=== PATIENT | female | born 1955 | race Caucasian/White ===

== ENCOUNTER 2021-04-20 13:21 | Outpatient (CLI) | payer OTHER ==
--- NOTE | 2021-04-20 16:17 | Ultrasound Report ---
PROCEDURE: Pelvic w/Transvaginal INDICATIONS: POST MENOPAUSAL BLEEDING TECHNIQUE: Real-time scanning was performed of the pelvic organs, with image documentation. Additional endovagi nal scanning was necessary due to incomplete visualization of the adnexal and endometrial structures by transabdominal scanning. COMPARISON: None. FINDINGS: No pathologic free abdominal or pelvic fluid. Uterus: Anteverted uterus is mildly enlarged and measures 8 x 3.6 x 4.9 cm in size. Coarsely heteroge neous myometrial echotexture is seen. 1.3 x 1 x 1.2 cm intramural fibroid in anterior myometrium near midline is again seen previously measures 1.4 x 1.3 x 1.7 cm in size. The endometrium measures 1.0 m m in combined thickness. Heterogeneous myometrial echotexture is noted with ill-defined margin. Endom etrial cyst measures 8 x 5 x 5 mm in size is also noted. No definite solid appearing endometrial mass . Multiple small nabothian cysts are noted along the endocervical canal. Ovaries: Right ovary measures 1.9 x 0.7 x 1.2 cm in size with a volume of 0.79 cc. Left ovary measur es 2 x 0.9 x 1.1 cm in size with a volume of 1.04 cc. No solid-appearing ovarian lesion. Normal blood flow is seen in bilateral ovaries on color Doppler images. IMPRESSION: 1. Enlarged uterus with heterogeneous myometrial echotexture. Double slight decrease in size of patie nt's known uterine fibroid as above. 2. Thickened endometrium for patient's age with heterogeneous endometrial echotexture and ill-defined margin. Subcentimeter endometrial cyst as above. Finding may represent endometrial hyperplasia. Unde rlying endometrial mass cannot be entirely excluded. CABINET FINISHER correlation is recommended. 3. No gross abnormality is seen in bilateral ovaries. Reviewed by: Petros Mayo MD on 04/20/2021 4:15 PM PST Approved by: Petros Mayo MD on 04/20/2021 4:15 PM PST Station ID: [id number]
== END 2021-04-20 13:22 | disposition home or self-care (01) ==
LOC: DI 13:21
PROVIDERS: ATTEND Nurse Practitioner Family
DX: N95.0 Postmenopausal bleeding (principal); D25.1 Intramural leiomyoma of uterus; R93.89 Abnormal findings on diagnostic imaging of other specified body structures; N85.8 Other specified noninflammatory disorders of uterus

== ENCOUNTER 2021-04-20 13:22 | Outpatient (CLI) | payer OTHER ==
--- NOTE | 2021-04-20 16:14 | DEXA Report ---
PROCEDURE: Dexa Spine and/or Hip INDICATIONS: POST MENOPAUSAL TECHNIQUE: Dual energy x-ray absorptiometry (DXA) was performed on a Yippy System. Regions measur ed are the AP Spine, femoral neck, and if needed forearm. COMPARISON: None. FINDINGS: Lumbar Spine: Bone Mineral Density 1.324 g/cm/cm,T score 1.3. Left Hip: Bone Mineral Density 0.947 g/cm/cm,T score -0.5 Left Femoral Neck: Bone Mineral Density 0.898 g/cm/cm, T score -1.0. (T score greater or equal to -1.0: NORMAL) (T score from -1.1 to -2.4: OSTEOPENIA) (T score less than or equal to -2.5 to: OSTEOPOROSIS) Impression: Normal bone mineral density. Patients with diagnosis of osteoporosis or osteopenia should have regular bone mineral density assess ment. For those eligible for Medicare, routine testing is allowed once every 2 years. Testing frequ ency can be increased for patients who have rapidly progressing disease or for those who are receivin g medical therapy to restore bone mass. Reviewed by: Petros aMyo MD on 04/20/2021 4:12 PM PST Approved by: Petros Mayo MD on 04/20/2021 4:12 PM PST Station ID: [id number]
== END 2021-04-20 13:23 | disposition home or self-care (01) ==
LOC: DI 13:22
PROVIDERS: ATTEND Nurse Practitioner Family
DX: Z78.0 Asymptomatic menopausal state (principal)

== ENCOUNTER 2021-09-06 20:49 | Emergency (ER) | payer MEDICARE, OTHER ==
[2021-09-06] MEDS ORDERED: TETANUS/DIPHTHERIA/PERTUSSIS 0.5 ML SYRINGE IM ONE (21:07)
[2021-09-06] MEDS ORDERED: HYDROcod/ACETAM 5/325 MG TABLET PO STA (21:20)
[2021-09-06] MEDS ORDERED: BACITRACIN ZINC OINT 1 PACKET TOP STA (21:27)
--- NOTE | 2021-09-06 21:41 | ED Physician Documentation ---
PD HPI UPPER EXT INJURY - Stated complaint Stated Complaint: R ARM INJ - Chief complaint Chief Complaint: Trauma Ext - History obtained from History obtained from: Patient, Family - History of Present Illness Location: Right, Forearm Timing - onset: How many hours ago (2) Timing - duration: Hours (2) Timing - details: Abrupt onset Pain level max: 7 Pain level now: 5 Improved by: Rest, Ice, Immobilization Worsened by: Moving, Palpating Associated symptoms: Swelling, Discolored. No: Weakness, Numbness, Tingling Contributing factors: No: Anticoagulated, Prior ortho surgery Recently seen: Not recently seen - Additonal information Additional information: 66-year-old female presents to the emergency department with right forearm pain. She was kicked in the right forearm by a baby horse. This occurred about 2 hours prior to arrival. Has a laceration to the right forearm as well. Unknown last tetanus. Worse with movement, better with rest. Review of Systems Constitutional: denies: Fever, Chills Respiratory: denies: Cough GI: denies: Nausea, Vomiting, Diarrhea Skin: denies: Rash PD PAST MEDICAL HISTORY - Past Medical History Past Medical History: Yes Cardiovascular: Hypertension, High cholesterol Neuro: None GI: GERD Psych: None Other Past Medical History: thrombocytopenia - Past Surgical History Past Surgical History: No - Present Medications Home Medications: Ambulatory Orders Medication Instructions Recorded Confirmed Estradiol [Estrace] 0.5 mg PO DAILY 10/31/20 09/06/21 Famotidine 4 mg PO DAILY 10/31/20 09/06/21 Hydrocodone/Acetaminophen 1 each PO BID 10/31/20 09/06/21 [Hydrocodone-Acetamin 10-300 mg] Progesterone,Micronized 100 mg PO DAILY 10/31/20 09/06/21 [Prometrium] Losartan [Cozaar] 50 mg PO DAILY 09/06/21 09/06/21 Propranolol ER [Inderal LA] 60 mg PO BID 09/06/21 09/06/21 - Allergies Allergies/Adverse Reactions: Allergies Allergy/AdvReac Type Severity Reaction Status Date / Time No Known Drug Allergies Allergy Verified 09/06/21 20:53 - Social History Does the pt smoke?: No Smoking Status: Never smoker Does the pt drink ETOH?: No Does the pt have substance abuse?: No - Immunizations Immunizations are current?: No PD ED PE NORMAL - Vitals Vital signs reviewed: Yes - General General: Alert and oriented X 3, No acute distress - HEENT HEENT: PERRL, Moist mucous membranes - Neck Neck: Supple, no meningeal sign - Cardiac Cardiac: RRR, Strong equal pulses - Respiratory Respiratory: No respiratory distress, Clear bilaterally - Derm Derm: Warm and dry - Extremities Extremities: Other (Swelling and bruising to the ulnar aspect of the right forearm. Neurovascularly intact. Full range of motion of the hand wrist and elbow without pain. Small abrasion is present as well. No active bleeding NVI) - Neuro Neuro: Alert and oriented X 3 - Psych Psych: Normal mood, Normal affect Results - Vitals Vitals: Vital Signs - 24 hr 09/06/21 20:54 Temperature 36.5 C Heart Rate 66 Respiratory 18 Rate Blood Pressure 194/77 H O2 Saturation 98 Oxygen O2 Source Room air - Rads (name of study) Right forearm x-ray Radiology: Final report received, EMP read contemporaneously, See rad report (Soft tissue swelling without acute fracture) PD MEDICAL DECISION MAKING - ED course Complexity details: reviewed results, re-evaluated patient, considered differential, d/w patient, d/w family ED course: 66-year-old female with a hematoma to the right forearm. No acute findings on x-ray. Wounds were cleansed and bandaged. Dressing applied. Pain well controlled with Vicodin here. Recommend continuing to ice the area at home. Newton wrap applied. Recommend that she follow-up with her doctor later this week for a wound check. Patient counseled regarding signs and symptoms for which I believe and urgent re-evaluation would be necessary. Patient with good understanding of and agreement to plan and is comfortable going home at this time This document was made in part using voice recognition software. While efforts are made to proofread this document, sound alike and grammatical errors may occur. Departure - Departure Disposition: 01 Home, Self Care Clinical Impression: Traumatic hematoma of right forearm Qualifiers: Encounter type: initial encounter Qualified Code(s): S50.11XA - Contusion of right forearm, initial encounter Condition: Good Instructions: ED Hematoma Follow-Up: LUIS FELIPE GONSALEZ ARNP [Primary Care Provider] - Within 1 week (For wound check) Comments: Your x-ray does not show any acute abnormalities today. Please follow-up with your doctor for further care including a wound check later this week. Continue to ice the area. Keep the wound clean. Return if you notice redness, swelling or drainage from the wound. Also return for worsening pain, numbness or tingling in your hand/forearm.
[2021-09-06 21:56] VITALS: BP 161/72
--- NOTE | 2021-09-06 23:01 | XRAY Report ---
PROCEDURE: Forearm RT INDICATIONS: kicked by horse, pain, swelling TECHNIQUE: 2 views of the forearm were acquired. COMPARISON: None. FINDINGS: Bones: No fractures or dislocations. No suspicious bony lesions. Soft tissues: No suspicious soft tissue calcifications or masses. IMPRESSION: 1. No fracture or dislocation. Reviewed by: Antonio Oh MD on 09/06/2021 10:59 PM PDT Approved by: Antonio Oh MD on 09/06/2021 10:59 PM PDT Station ID: [id number]
== END 2021-09-06 21:55 | disposition home or self-care (01) ==
LOC: ED 20:49
DX: S50.811A Abrasion of right forearm, initial encounter (principal); S50.11XA Contusion of right forearm, initial encounter; W55.12XA Struck by horse, initial encounter
CPT/HCPCS: 73090; 90471; 90715; 99282; 99283; A9270

== ENCOUNTER 2022-11-09 14:36 | Outpatient (CLI) | payer MEDICARE ==
--- NOTE | 2022-11-09 18:33 | XRAY Report ---
PROCEDURE: Chest 2 View X-Ray INDICATIONS: MALIGNANT NEOPLASM OF LEFT BREAST TECHNIQUE: 2 views of the chest were acquired. COMPARISON: 02/14/2013. FINDINGS: Surgical changes and devices: None. Lungs and pleura: No pleural effusions or pneumothorax. Lungs are clear. Mediastinum: Mediastinal contours appear normal. Heart size is normal. Bones and chest wall: No suspicious bony lesions. Overlying soft tissues appear unremarkable. IMPRESSION: No acute cardiopulmonary process. Reviewed by: Jose Angel Burkett MD on 11/09/2022 6:31 PM PDT Approved by: Jose Angel Burkett MD on 11/09/2022 6:31 PM PDT Station ID: [id number]
== END 2022-11-09 14:37 | disposition home or self-care (01) ==
LOC: DI 14:36
PROVIDERS: ATTEND Surgery
DX: Z01.818 Encounter for other preprocedural examination (principal); C50.912 Malignant neoplasm of unspecified site of left female breast; Z17.0 Estrogen receptor positive status [ER+]
CPT/HCPCS: 93005

== ENCOUNTER 2023-05-03 10:57 | Outpatient (CLI) | payer MEDICARE ==
--- NOTE | 2023-05-03 15:07 | CT Report ---
PROCEDURE: Lung Cancer Screen INDICATIONS: SMOKER TECHNIQUE: A CT scan of the chest was performed. Intravenous contrast media was not administered. Images were re corded and evaluated at appropriate window settings. Reformats: axial MIP of the chest, coronal and s agittal. For radiation dose reduction, the following was used: automated exposure control, adjustment of mA and/or kV according to patient size. COMPARISON: None. FINDINGS: Image quality: Excellent. Prior cancer history: Breast cancer Lungs and pleura: No pleural effusions. No pneumothorax. No suspicious pulmonary nodules which requi re follow up. Minimal dependent changes seen in the left base. Mediastinum: Heart size is normal. No pericardial effusion. No large vessel abnormality. No mediastin al adenopathy by size criteria. Chest wall and lower neck: Thyroid is unremarkable. No axillary or supraclavicular adenopathy by size . Surgical clips of the right breast. Bones: No aggressive osseous abnormality. Sclerotic changes of the mid thoracic spine with severe DJD present. Upper Abdomen: Unremarkable. IMPRESSION: Lung RAD: 2 Benign Minimal dependent changes in the left lung base. Recommendation: Recommend LDCT chest in 12 months Non-Lung Significant Findings: . Severe degenerative disc disease of the mid thoracic spine Surgical clips of the right breast. Reviewed by: Kwadwo Conley MD on 05/03/2023 3:06 PM PST Approved by: Kwadwo Conley MD on 05/03/2023 3:06 PM PST Station ID: [id number]
== END 2023-05-03 10:58 | disposition home or self-care (01) ==
LOC: DI 10:57
PROVIDERS: ATTEND Registered Nurse
DX: Z12.2 Encounter for screening for malignant neoplasm of respiratory organs (principal); Z85.3 Personal history of malignant neoplasm of breast; F17.210 Nicotine dependence, cigarettes, uncomplicated

== ENCOUNTER 2023-10-20 14:40 | Outpatient (CLI) | payer MEDICARE ==
--- NOTE | 2023-10-21 20:36 | CT Report ---
PROCEDURE: Lumbar Spine WO INDICATIONS: LOW BACK PAIN TECHNIQUE: Helical axial CT of the lumbar spine was obtained without contrast and reformatted in mul tiple planes. Radiation dose reduction was achieved utilizing automated exposure control or adjustmen t of mA and/or kV according to patient size. COMPARISON: None. FINDINGS: Bones: L4-5 interbody and posterolateral fusion supported by beverly and screw instrumentation in appropr iate position. Central decompressive laminectomy. Vertebral body heights and alignment are maintained other than L3-4 where there is grade 1 anterior spondylolisthesis Soft tissues: No retroperitoneal masses or hematomas. Visualized aorta is normal in caliber. T12-L1: Normal in appearance. L1-L2: Mild disc bulge. No central or foraminal stenosis L2-L3: Disc bulge, arthropathy and flavum laxity results in moderate central cysts stenosis. Moder ate bilateral foraminal stenosis L3-L4: Disc bulge, arthropathy and ligamentum flavum laxity combined results in severe central sten osis. Moderate bilateral foraminal stenosis. L4-L5: Discectomy and fusion with posterior decompression. No central or foraminal stenosis L5-S1: No central foraminal stenosis IMPRESSION: Degenerative disc disease and arthropathy results in severe central stenosis L3-4. Instrumented discectomy and fusion L4-5 Reviewed by: Johnathon Ricks MD on 10/21/2023 7:35 PM MITCH Approved by: Johnathon Ricks MD on 10/21/2023 7:35 PM MITCH Station ID: [id number]
== END 2023-10-20 14:41 | disposition home or self-care (01) ==
LOC: DI 14:40
PROVIDERS: ATTEND Neurological Surgery
DX: M47.26 Other spondylosis with radiculopathy, lumbar region (principal); M51.16 Intervertebral disc disorders with radiculopathy, lumbar region; M48.061 Spinal stenosis, lumbar region without neurogenic claudication

== ENCOUNTER 2023-10-20 14:42 | Outpatient (CLI) | payer MEDICARE ==
--- NOTE | 2023-10-20 16:46 | XRAY Report ---
PROCEDURE: Lumbar Spine w/Flex/Ext 6+V INDICATIONS: LOW BACK PAIN TECHNIQUE: 3 views of the lumbar spine were acquired. COMPARISON: Same day CTA FINDINGS: Surgical change: Posterior and interbody fusion of L4-5, without hardware complication. Bones: 5 [id number] vertebrae are present. Leftward curvature of the spine, centered at L3. No vertebral body compression fractures. No suspicious bony lesions. Moderate disc height loss at all l evels. Soft tissues: Overlying bowel gas pattern is normal. No suspicious soft tissue calcifications. Flexion/extension: 1 cm anterolisthesis of L3 on L4, stable flexion but 0.7 cm with extension. IMPRESSION: 1 cm anterolisthesis of L3 on L4, stable flexion but decreased to 0.7 cm with extension. Reviewed by: Chuy Garcia MD on 10/20/2023 4:45 PM PDT Approved by: Chuy Garcia MD on 10/20/2023 4:45 PM PDT Station ID: [id number]
== END 2023-10-20 14:43 | disposition home or self-care (01) ==
LOC: DI 14:42
PROVIDERS: ATTEND Neurological Surgery
DX: M43.16 Spondylolisthesis, lumbar region (principal); G89.29 Other chronic pain; M47.26 Other spondylosis with radiculopathy, lumbar region; M51.16 Intervertebral disc disorders with radiculopathy, lumbar region; M48.061 Spinal stenosis, lumbar region without neurogenic claudication

== ENCOUNTER 2023-11-03 16:54 | Outpatient (CLI) | payer MEDICARE | END 2023-11-03 16:55 | disposition home or self-care (01) | LOC: RT 16:54 | PROVIDERS: ATTEND Physician Assistant | DX: Z01.810 Encounter for preprocedural cardiovascular examination (principal); M54.16 Radiculopathy, lumbar region; M54.42 Lumbago with sciatica, left side; M54.41 Lumbago with sciatica, right side; G89.29 Other chronic pain | CPT/HCPCS: 93005 ==